=== PATIENT | female | born 1945 | race Caucasian/White ===

== ENCOUNTER 2024-09-30 09:00 | Emergency (ER) | payer OTHER ==
[~2024-09-30] VITALS: Ht 162.6 cm; Wt 76.0 kg
[2024-09-30] MEDS ORDERED: ATOR40TA71 PO (09:27)
[2024-09-30] MEDS ORDERED: AMLO10TA55 PO (09:27)
[2024-09-30] MEDS ORDERED: HYDR25TA PO (09:27)
[2024-09-30] MEDS ORDERED: PIOG15TA66 PO (09:27)
[2024-09-30] MEDS ORDERED: LOSA100T59 PO (09:27)
[2024-09-30] MEDS ORDERED: SODIUM CHLORIDE 0.9% 100 ML ONE (09:32)
[2024-09-30] MEDS ORDERED: IOHEXOL 350 MG/ML 100 ML VIAL ONE (09:32)
[2024-09-30 09:35] LABS: BASOPHILS % (AUTO) 0.2 % (0.0-2.0); EOSINOPHILS % (AUTO) 0.6 % (1.0-6.0); HEMATOCRIT 35.8 % (36-46); LYMPHOCYTES % (AUTO) 21.8 % (22.0-44.0); MEAN CORPUSCULAR HEMOGLOBIN 31.7 pg (26.0-34.0); MEAN CORPUSCULAR HGB CONC 33.6 G/dL (31.0-37.0); MEAN CORPUSCULAR VOLUME 94 fL (80-100); MONOCYTES # (AUTO) 0.8 K/uL (0.1-1.0); MONOCYTES % (AUTO) 8.5 % (2.0-9.0); NEUTROPHILS # (AUTO) 6.2 K/uL (1.8-7.7); NEUTROPHILS % (AUTO) 68.9 % (40.0-70.0); PLATELET COUNT (AUTO) 269 K/uL (150-450); RED BLOOD CELL COUNT(AUTO) 3.79 MIL/uL (4.00-5.20); RED CELL DISTRIBUTION WIDTH 13.6 % (11.5-14.5); WHITE BLOOD COUNT (AUTO) 9.1 K/uL (4.5-11.0)
[2024-09-30 09:42] LABS: ANION GAP 4 mmol/L (8-16); CALCIUM, TOTAL 9.9 mg/dL (8.8-10.5); CARBON DIOXIDE 33 mmol/L (22-29); CHLORIDE 97 mmol/L (98-107); CREATININE 1.32 mg/dL (0.60-1.30); GLOMERULAR FILTR. RATE CALC 39 mL/min (>60); GLUCOSE,RANDOM 149 mg/dL (70-110); POTASSIUM 4.4 mmol/L (3.5-5.1); SODIUM SERUM 133 mmol/L (136-145); UREA NITROGEN, BLOOD 23 mg/dL (7-18)
[2024-09-30 09:46] LABS: PROTHROMBIN TIME 10.9 SEC (9.4-11.6)
[2024-09-30 09:49] LABS: ALANINE AMINOTRANSFERASE 21 U/L (12-78); ALBUMIN 3.4 g/dL (3.4-5.0); ALKALINE PHOSPHATASE 80 U/L (46-116); ASPARTATE AMINOTRANSFERASE 18 U/L (15-37); TOTAL PROTEIN, SERUM 6.8 g/dL (6.4-8.2); TROPONIN I-HIGH SENSITIVITY 20 ng/L (<51)
[2024-09-30] MEDS: ASPIRIN 300 MG RECTAL SUPPOSITORY PR ONE (10:11)
[2024-09-30 10:15] VITALS: BP 165/90; PULSE 69; RESP 16; TEMP 97.5; O2SAT 96
== END 2024-09-30 10:53 | disposition short-term general hospital (02) ==
LOC: EMS 09:06
DX: I63.511 Cerebral infarction due to unspecified occlusion or stenosis of right middle cerebral artery (principal); E11.9 Type 2 diabetes mellitus without complications; I44.7 Left bundle-branch block, unspecified; Z71.6 Tobacco abuse counseling; Z88.5 Allergy status to narcotic agent
CPT/HCPCS: 99285; 70496; 71045; 80053; 82962; 84484; 85025; 85610; 85730; 86850; 86900; 86901; 36415; 70498; 82948; 93005; 70450; Q9967; J7050